=== PATIENT | female | born 1975 | race Hispanic/Latino ===

== ENCOUNTER 2022-05-20 21:33 | Emergency (ER) | payer SELFPAY ==
[~2022-05-20] VITALS: Ht 160 cm; Wt 101.2 kg
[2022-05-20] MEDS ORDERED: KETOROLAC TROMETHAMINE 30 MG/ML VIAL IV STA (22:12)
[2022-05-20] MEDS ORDERED: KETOROLAC TROMETHAMINE 30 MG/ML VIAL ONE (23:00)
[2022-05-21 00:01] VITALS: BP 143/73
[2022-05-21] MEDS ORDERED: ACETAMINOPHEN 325 MG TAB ONE (00:11)
== END 2022-05-21 00:01 | disposition home or self-care (01) ==
LOC: FSED 21:58
DX: R50.9 Fever, unspecified (principal); B34.9 Viral infection, unspecified; I10 Essential (primary) hypertension; E11.9 Type 2 diabetes mellitus without complications; R94.31 Abnormal electrocardiogram [ECG] [EKG]; Z96.641 Presence of right artificial hip joint
CPT/HCPCS: 71046; 80053; 82553; 84484; 85025; 85379; 87400; 93005; 99283; J1885